=== PATIENT | male | born 1970 | race Caucasian/White ===

== ENCOUNTER 2017-08-01 11:21 | Day surgery (SDC) | payer BC ==
[2017-07-31 14:20] LABS: BASOPHILS # (AUTO) 0.1 X10'3 (0-0.2); BASOPHILS % (AUTO) 0.7 % (0-1); EOSINOPHILS # (AUTO) 0.1 X10'3 (0-0.9); EOSINOPHILS % (AUTO) 1.9 % (0-6); LYMPHOCYTES # (AUTO) 3.2 X10'3 (1.1-4.8); LYMPHOCYTES % (AUTO) 41.5 % (21-51); MEAN CORPUSCULAR HEMOGLOBIN 29.8 PG (27.0-31.0); MEAN CORPUSCULAR HGB CONC 35.1 % (33.0-36.5); MEAN PLATELET VOLUME 7.4 FL (7.4-10.4); MONOCYTES # (AUTO) 0.6 X10'3 (0-0.9); MONOCYTES % (AUTO) 7.9 % (2-12); NEUTROPHILS # (AUTO) 3.7 X10'3 (1.8-7.7); PRE OP HEMATOCRIT 40.9 % (42.0-52.0); PRE OP HEMOGLOBIN 14.4 g/dL (14.0-17.9); PRE OP PLATELET COUNT 251 X10'3 (140-440); RED BLOOD COUNT 4.82 X10'6 (4.70-6.10); RED CELL DISTRIBUTION WIDTH 13.7 % (11.5-14.5)
[2017-07-31 14:22] LABS: CLARITY,URINE CLEAR (Clear); COLOR,URINE YELLOW (Yellow); GLUCOSE, URINE NEGATIVE (Neg); KETONES,URINE NEGATIVE (Neg); LEUKOCYTE ESTERASE ,URINE NEGATIVE (Neg); NITRITES, URINE NEGATIVE (Neg); OCCULT BLOOD,URINE NEGATIVE (Neg); PROTEIN,URINE NEGATIVE (Neg); UROBILINOGEN,URINE 0.2 E.U/dL (0.2-1.0)
[2017-07-31 14:23] LABS: UA COLLECTION TYPE VOIDED
[2017-07-31 14:27] LABS: ALBUMIN 4.6 G/DL (3.4-5.0); ALBUMIN/GLOBULIN RATIO 1.5 (1.1-1.5); ALKALINE PHOSPHATASE 64 IU/L (46-116); BLOOD UREA NITROGEN 21 MG/DL (7-18); CALCIUM 9.5 MG/DL (8.5-10.1); CHLORIDE 109 MMOL/L (99-107); PRE OP ALT 51 U/L (30-65); PRE OP ANION GAP 8 (8-16); PRE OP AST 25 U/L (10-37); PRE OP BILIRUB, TOTAL 0.5 MG/DL (0.0-1.0); PRE OP GLUCOSE 98 MG/DL (70-104); PRE OP SODIUM 145 MMOL/L (135-145); TOTAL CARBON DIOXIDE 27.6 MMOL/L (24-32); TOTAL PROTEIN 7.6 G/DL (6.4-8.2); eGFR 79 ML/MIN
[~2017-08-01] VITALS: Ht 165.1 cm; Wt 72.6 kg
[2017-08-01] VITALS (9 sets, daily range): BP systolic 116–149; BP diastolic 74–116
[~2017-08-01 11:21] MED LIST: NO HOME MEDS; cefazolin 1gm/NS 100mL 100 ML IV ONE; famotidine 20mg tablet PO ONE; ringers solution, lacted 1,000 ML IV SCH
[2017-08-01] MEDS ORDERED: ringers solution, lacted 1,000 ML IV SCH (11:28)
[2017-08-01] MEDS ORDERED: meperidine/PF 25mg/ml syringe IV PRN ×3 (11:30)
[2017-08-01] MEDS ORDERED: proCHLORperazine 10 MG/2 ml inj IV PRN (11:30)
[2017-08-01] MEDS ORDERED: morphine 2 MG/ML inj. syringe IV PRN ×2 (11:30)
[2017-08-01] MEDS ORDERED: ondansetron/PF 4mg/2ml inj IV PRN (11:30)
[2017-08-01] MEDS ORDERED: BUPIVAcaine/PF 2.5 mg/ml (0.25%) 30ml vial ONE (12:29)
[2017-08-01] MEDS ORDERED: ceFAZolin 1000mg inj ONE (12:29)
[2017-08-01] MEDS ORDERED: sevoflurane 250ml liquid IH ONE (12:40)
[2017-08-01] MEDS ORDERED: fentaNYL/PF 50MCG/1 ML 2ML syringe ONE (12:49)
[2017-08-01] MEDS ORDERED: midazolam 2 mg/2 ml injection ONE (12:50)
[2017-08-01] MEDS ORDERED: ketorolac trometh. 30mg/ml inj. ONE (13:44)
[2017-08-01] MEDS ORDERED: propofol inj 20 ML IV ONE (13:45)
[2017-08-01] MEDS ORDERED: LIDOcaine 2% (20mg/ml) 5ml vial ONE (13:45)
== END 2017-08-01 15:00 | disposition home or self-care (01) ==
LOC: PAS 11:21
PROVIDERS: ATTEND Surgery
DX: K40.90 Unilateral inguinal hernia, without obstruction or gangrene, not specified as recurrent (principal)
CPT/HCPCS: 36415; 49505; 80053; 81003; 85025; 93005; A6449; C1781; J0690; J1885; J2001; J2250; J2704; J3010; J3490; J7120; A7000